=== PATIENT | female | born 1980 | race African-American/Black ===

== ENCOUNTER 2024-11-04 07:29 | Emergency (ER) | payer BC ==
[~2024-11-04] VITALS: Ht 165.1 cm; Wt 82.0 kg
[2024-11-04 07:31] VITALS: BP 161/100
[2024-11-04] MEDS: METHYLPREDNISOLONE SOD SUCC 125MG/2ML (ACT-O-VIAL) IV STA (08:17)
[2024-11-04] MEDS: ALBUTEROL (0.083%) 2.5MG/3ML NEB HHN SCH (08:37)
[2024-11-04 08:38] VITALS: PULSE 95; RESP 22; O2SAT 97
[2024-11-04] MEDS: IPRATROPIUM BROMIDE (0.02%) 0.5MG/2.5ML NEB HHN STA (08:38)
[2024-11-04] MEDS ORDERED: P50 MT (10:05)
[2024-11-04] MEDS ORDERED: ALBU18HF2 IH (10:11)
[2024-11-04] MEDS ORDERED: ALBU2.5V13 NEB (10:11)
== END 2024-11-04 10:36 | disposition home or self-care (01) ==
LOC: ER 07:29
DX: J45.901 Unspecified asthma with (acute) exacerbation (principal); E78.00 Pure hypercholesterolemia, unspecified; Z98.890 Other specified postprocedural states
CPT/HCPCS: 81025; 94640; 96372; 99283; J2919; Z7610; 94070